=== PATIENT | female | born 1990 ===

== ENCOUNTER 2018-08-31 10:19 | Emergency (ER) | payer OTHER ==
--- NOTE | 2018-09-01 12:49 | UC ---
Course/Dx - Diagnoses Provider Diagnoses: Patient left without being seen Discharge - Sign-Out/Discharge Documenting (check all that apply): Post-Discharge Follow Up All imaging exams completed and their final reports reviewed: No Studies - Discharge Plan Condition: Stable Disposition: LEFT WITHOUT BEING SEEN Referrals: Jackelyn Saenz [Primary Care Provider] - - Billing Disposition and Condition Condition: STABLE Disposition: Left Without Being Seen
== END 2018-08-31 10:32 | disposition left against medical advice (07) ==
LOC: UCCORT 10:19
DX: R05 Cough (principal); J34.89 Other specified disorders of nose and nasal sinuses; H93.91 Unspecified disorder of right ear; Z53.21 Procedure and treatment not carried out due to patient leaving prior to being seen by health care provider